=== PATIENT | female | born 1965 | race Caucasian/White ===

== ENCOUNTER 2022-10-20 11:06 | Emergency (ER) | payer OTHER ==
[~2022-10-20] VITALS: Ht 152.4 cm; Wt 67.1 kg
[~2022-10-20 11:06] MED LIST: ORPH100T PO
[2022-10-20] MEDS ORDERED: METFORMIN HCL1000 M3 PO (11:21)
== END 2022-10-20 16:02 | disposition home or self-care (01) ==
LOC: ER 11:06
DX: R10.9 Unspecified abdominal pain (principal); E78.00 Pure hypercholesterolemia, unspecified; I10 Essential (primary) hypertension; E11.9 Type 2 diabetes mellitus without complications; Z79.84 Long term (current) use of oral hypoglycemic drugs; M51.36 Other intervertebral disc degeneration, lumbar region; Z20.822 Contact with and (suspected) exposure to COVID-19